=== PATIENT | female | born 1955 ===

== ENCOUNTER 2020-06-10 07:00 | Day surgery (SDC) | payer MEDICAID, OTHER ==
[~2020-06-10 07:00] MED LIST: Lactated Ringers 1,000 ML IV SCH
[2020-06-10] MEDS ORDERED: Midazolam 1 MG/ML 2 ML SDV ONE (07:11)
[2020-06-10] MEDS ORDERED: Propofol 200 MG/20 ML SDV ONE (07:11)
[2020-06-10] MEDS ORDERED: fentaNYL 100 MCG/2 ML SDV ONE (07:11)
[2020-06-10] MEDS ORDERED: Lidocaine 2% 5 ML SDV ONE (07:11)
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
--- NOTE | 2020-06-10 09:05 | PCM.OPNOTE ---
- General Post-Op/Procedure Note Date of Surgery/Procedure: 06/10/20 Operative Procedure(s): egd w bx Findings: see [id number] Pre Op Diagnosis: h pylori hx Post-Op Diagnosis: Same Anesthesia Technique: Moderate Sedation Primary Surgeon: Alex Leal Complications: None Condition: Good
--- NOTE | 2020-06-10 09:31 | PCM.POSTAN ---
POST ANESTHESIA ASSESSMENT - MENTAL STATUS Mental Status: Alert, Oriented - VITAL SIGNS Vital Signs: Last Vital Signs Temp 37.0 C 06/10/20 08:10 Pulse 73 06/10/20 09:26 Resp 12 06/10/20 09:26 BP 121/61 06/10/20 09:26 Pulse Ox 97 06/10/20 09:26 - RESPIRATORY Respiratory Status: Respiratory Rate WNL, Airway Patent, O2 Saturation Stable - CARDIOVASCULAR CV Status: Pulse Rate WNL, Blood Pressure Stable - GASTROINTESTINAL GI Status: No Symptoms - PAIN Pain Score: 0 - POST OP HYDRATION Hydration Status: Adequate & Stable - OBSERVATIONS Free Text/Narrative:: No anesthesia problems
--- NOTE | 2020-06-10 10:27 | PCM48HPAN ---
Post Anesthesia Note - EVALUATION WITHIN 48HRS OF ANESTHETIC Vital Signs in Normal Range: Yes Patient Participated in Evaluation: Yes Respiratory Function Stable: Yes Airway Patent: Yes Cardiovascular Function Stable: Yes Hydration Status Stable: Yes Pain Control Satisfactory: Yes Nausea and Vomiting Control Satisfactory: Yes Mental Status Recovered: Yes Vital Signs: Last Vital Signs Temp 37.0 C 06/10/20 08:10 Pulse 73 06/10/20 09:26 Resp 12 06/10/20 09:26 BP 121/61 06/10/20 09:26 Pulse Ox 97 06/10/20 09:26 - COMMENTS/OBSERVATIONS Free Text/Narrative:: No anesthesia problems
--- NOTE | 2020-06-10 11:50 | OR ---
SURGEON: Alex Leal MD DATE OF PROCEDURE: 06/10/2020 PREOPERATIVE DIAGNOSIS: History of Helicobacter pylori. POSTOPERATIVE DIAGNOSIS: History of Helicobacter pylori. PROCEDURE PERFORMED: Esophagogastroduodenoscopy with biopsy. DESCRIPTION OF PROCEDURE: EGD: The patient was taken to the endoscopy room, and with the HEEL GOUGER, Diprivan was administered. A well-lubricated EGD scope was gently inserted through the oropharynx, down the esophagus, passing through the gastroesophageal junction, into the stomach. The mucosa was examined upon the passage. Any etiology will be noted. Once in the stomach, we continued to advance to the distal antrum, passed through the pylorus into the second portion of the duodenum. Again, the mucosa was examined for any abnormality and etiology. The scope was then retrieved back to the stomach and then retroflexed to look at the fundus of the stomach. If a biopsy was indicated, we will biopsy the antrum, body, and gastroesophageal junction. The air will be sucked out while the scope is retrieved to reduce the patient's discomfort. The patient tolerated the procedure well. There were no intraoperative complications. Dr. Leal was present through the whole procedure. Prior to surgery, a time-out had been called, the patient identified, procedure identified and antibiotic administered. FINDINGS: 1. The patient is easily sedated with HEEL GOUGER and Diprivan, the patient is soundly snoring. 2. Oropharynx and proximal esophagus are free of disease, stricture, or inflammation. Distal esophagus at GE junction at 40 shows mild salmon- colored change, consistent with acid reflux. Stomach rugae are normal in appearance. Antrum looks fine. There are a couple of petechial blood spots, benigno in color, and no clinical significance. Duodenum is grossly normal. Retroflexed look at the fundus of stomach, there is no hiatal hernia. Biopsy done at antrum, body, GE junction at 40 and sucked out the gas while scope pulling out. At the body, there is an area like a healed gastric ulcer. It is like pit or it is just the way the picture notes and the body is biopsied right at the pit area. During the whole study, there is no bile or food particle observed. ATRUR / GRAY /[id number]
[2020-06-10 13:06] VITALS: BP 125/66; PULSE 88
== END 2020-06-10 10:25 | disposition home or self-care (01) ==
LOC: MW.SDS 07:00
PROVIDERS: ATTEND Surgery
DX: K29.50 Unspecified chronic gastritis without bleeding (principal); K20.9 Esophagitis, unspecified; I10 Essential (primary) hypertension; E78.00 Pure hypercholesterolemia, unspecified; Z88.8 Allergy status to other drugs, medicaments and biological substances; Z79.899 Other long term (current) drug therapy; Z98.890 Other specified postprocedural states; Z87.891 Personal history of nicotine dependence; Z86.010 Personal history of colon polyps; Z86.19 Personal history of other infectious and parasitic diseases
CPT/HCPCS: 43239; J2001; J2250; J2704; J3010; J7120